=== PATIENT | male | born 1960 | race Caucasian/White ===

== ENCOUNTER 2017-12-07 07:58 | Day surgery (SDC) | payer MEDICARE ==
[~2017-12-07] VITALS: Ht 185.4 cm; Wt 120.5 kg
[2017-12-07] VITALS (8 sets, daily range): BP systolic 142–183; BP diastolic 92–105; BMI 33.4
--- NOTE | ~2017-12-07 | OP ---
PATIENT NAME: JULIEN WILLOUGHBY JR MEDICAL RECORD: [id number] :62 LOCATION:[facility] ADMISSION DATE: SURGEON: HAVEN LOZANO MD DATE OF OPERATION: 12/08/2017 PREOPERATIVE DIAGNOSES: Spinal cord compression with myelopathy at C4-C5 and C5-C6 secondary to disc herniation and osteophyte formation at C4-C5 and C5-C6. PROCEDURE: Anterior cervical discectomy and fusion with PEEK interbody cages, [employer] bone stem cell allograft, a separate anterior cervical plate and screws from [employer] VIP anterior cervical plate, removal of osteophytes. DESCRIPTION OF TECHNIQUE: After induction of general endotracheal anesthesia, the patient was positioned supine on the operating table. The neck was prepped and draped in usual sterile fashion. Fluoroscopic x-ray and freer dissector localized the C5 vertebral body. A transverse skin incision was carried out from the midline to the sternocleidomastoid muscle. The platysma was divided with Bovie cautery. Using blunt and sharp dissection with Metzenbaum scissors, I proceeded in an avascular plane medial to the carotid sheath. The C4-C5 and C5-C6 interspaces were identified. Osteophytes were removed anteriorly with Adson rongeurs. Following this, [place] distracting pins were placed at the bodies of C4, C5 and C6. Disc space was incised with a #11 blade in each interspace. The disc material was removed and the endplates were prepared with curettes at C4-C5 and C5-C6. Posterior longitudinal ligament was removed with Cloward rongeurs. Osteophytes were drilled away posteriorly. The foraminotomy was carried out on both sides with a Cloward rongeur. The dura was decompressed as well as nerve roots on both sides at C4-C5 and C5-C6 at the completion of this. A PEEK interbody cage was placed in the disc space at C4-C5 and C5-C6, prior to this, it was filled with Biocell bone stem cell allograft. A separate anterior cervical plate and screws using a VIP anterior cervical plate from [employer] was used to span the C4-C5 and C5-C6 vertebral bodies. Then, 18 mm screws were placed through the plate and the locking cams were tightened down with the screw heads. Good position of the plate and screws was confirmed with fluoroscopic x-ray as well as The PEEK interbody cages. Meticulous hemostasis was maintained throughout the wound and wound was irrigated with copious amounts of Ancef irrigant solution. The platysma and subdermal layer were closed with interrupted 3-0 Vicryl suture. The skin was reapproximated with Steri-Strips and benzoin. A sterile dressing was applied to the wound. The patient was awakened in good condition and taken to recovery. All counts were reported as correct. Estimated blood loss was minimal. TRANSINT:[id number] Voice Confirmation ID: [id number] DOCUMENT ID: [id number] HAVEN LOZANO MD at 1607 CC: [id number] DICTATION DATE: 12/08/17 0752 PRODUCT DESIGN MANAGER: 12/08/17 1101 [facility] 12/08/[address] [address]
[~2017-12-07 07:58] MED LIST: ANORO ELLIPTA1 EACH INH; COZAAR25 MG PO; FLOMAX0.4 MG PO; NAPROSYN500 MG PO; NEURONTIN 300300 MG PO; NEXIUM40 MG PO; NORCO 7.5/325 T1 TA1 PO
[2017-12-07 09:12] LABS: HEMATOCRIT 47.4 % (42.0-54.0); HEMOGLOBIN 15.9 g/dL (13.5-17.5); MCH 29.2 pg (26.0-34.0); MCHC 33.5 g/dL (31.0-37.0); MEAN PLATELET VOLUME 10.2 fL (7.4-10.4); RBC 5.45 10x6/uL (4.20-6.10); RDW 14.3 % (11.5-14.5); WBC 7.5 10x3/uL (4.8-10.8)
[2017-12-08] VITALS (9 sets, daily range): BP systolic 147–189; BP diastolic 84–103; Ht 185.4 cm; Wt 120.5 kg
[2017-12-08] MEDS ORDERED: HYDROCODONE-APA1 TAB PO (13:31)
== END 2017-12-08 15:43 | disposition home or self-care (01) ==
LOC: D.ICU 07:58 → D.SDCHOLD 07:58 → D.OPS 07:58 → EDSTATUS 09:00 → D.SDCHOLD 09:00 → D.ICU 17:38 → D.OPS 12-08 15:43
PROVIDERS: Anesthesiology; Neurological Surgery
PROC: 0RB30ZZ Excision of Cervical Vertebral Disc, Open Approach (ICD-10-PCS; principal; 2017-12-07 10:00)
DX: M50.10 Cervical disc disorder with radiculopathy, unspecified cervical region (principal); Z01.812 Encounter for preprocedural laboratory examination